=== PATIENT | male | born 1980 | race Caucasian/White ===

== ENCOUNTER 2017-04-19 15:18 | Emergency (ER) | payer SELFPAY ==
[2017-04-19 15:43] LABS: #Basophils 0.1 thou/uL (0.0-0.2); #Eosinphils 0.9 thou/uL (0.0-0.7); #Lymphocytes 2.8 thou/uL (1.20-3.40); #Monocytes 0.9 thou/uL (0.11-0.59); #Neutrophils 5.3 thou/uL (1.40-6.50); %Basophils 1.2 % (0.0-1.0); %Eosinophils 9.3 % (0.0-10.0); %Lymphocytes 27.6 % (21.0-51.0); %Monocytes 9.2 % (0.0-10.0); %Neutrophils 52.8 % (42.0-75.0); Hemoglobin 16.7 g/dL (14.0-18.0); Mean Corpuscular HGB CONC 35.6 g/dL (32.0-36.0); Mean Corpuscular Hemoglobin 31.9 pg (27.0-31.0); Mean Corpuscular Volume 89.6 fl (80.0-94.0); Platelet Count 257 thou/uL (130-400); RBC Distribution Width 11.2 % (11.5-14.5); Red Blood Cell (RBC) Count 5.24 mill/uL (4.70-6.10)
[2017-04-19 15:58] LABS: ALT (SGPT) 18 U/L (8-55); AST (SGOT) 13 U/L (5-34); Albumin 3.6 g/dL (3.5-5.0); Alkaline Phosphatase 68 U/L (40-150); Anion Gap 14 mmol/L (10-20); BUN (Urea Nitrogen) 10 mg/dL (8.9-20.6); Bilirubin, Total 0.6 mg/dL (0.2-1.2); CKMB 0.9 ng/mL (0-6.6); Calc. Creatinine Clearance 0 mL/min (70-130); Carbon Dioxide 24 mmol/L (22-29); Chloride 107 mmol/L (98-107); Estimated GFR-MDRD 78; Globulin 3.2 g/dL (2.4-3.5); Glucose 146 mg/dL (70-105); Potassium 3.5 mmol/L (3.5-5.1); Protein, Total 6.8 g/dL (6.0-8.3); Sodium 141 mmol/L (136-145); Troponin I Less than 0.010 ng/mL (< 0.028)
--- NOTE | 2017-04-19 15:58 | RAD ---
FRONTAL VIEW CHEST: Comparison: 12-19-14 Indication: Chest pain. FINDINGS: There is no evidence of consolidation, effusion, or discrete pneumothorax. The cardiac silhouette is within normal limits. IMPRESSION: No focal consolidation. POS: [place]
--- NOTE | 2017-04-19 17:51 | CT ---
CT OF CHEST WITH CONTRAST CT ABDOMEN AND PELVIS WITH CONTRAST 3D VOLUME RENDERING PERFORMED CT AORTOGRAM: Clinical history: Chest pain. FINDINGS: The thoracoabdominal aorta is of normal caliber, without evidence of dissection. There is no periaor tic hematoma. No retroperitoneal hemorrhage. There is multilevel endplate irregularity of the imaged spine with mild areas of chronic appearing h eight loss. Correlate clinically. No evidence of lobar consolidation, effusion, or pneumothorax. There are several scattered mildly prominent mesenteric lymph nodes, nonspecific. IMPRESSION: 1. No evidence of acute aortic dissection or aneurysm. 2. Nonspecific mild enlargement of numerous mesenteric lymph nodes. This could be on the basis of me senteric adenitis or alternatively a lymphoproliferative process. Recommend correlation with laborat ory values, clinical assessment, and as necessary, imaging follow up. Code T POS: [facility]
== END 2017-04-19 17:50 | disposition home or self-care (01) ==
LOC: BURERS 15:18
DX: R07.9 Chest pain, unspecified (principal); I10 Essential (primary) hypertension; F17.210 Nicotine dependence, cigarettes, uncomplicated
CPT/HCPCS: 71010; 71275; 80053; 82553; 83690; 83880; 84484; 85025; 85379; 93005; 96360

== ENCOUNTER 2021-09-18 23:51 | Emergency (ER) | payer SELFPAY ==
[2021-09-19] MEDS ORDERED: Albuterol Sulfate 1.25 MG/3 ML NEB ONE (00:17)
[2021-09-19] MEDS ORDERED: Albuterol Sulfate 2.5 mg/0.5 ml Neb ONE ×6 (00:22→01:32)
[2021-09-19 01:36] LABS: #Basophils 0.1 thou/uL (0.0-0.2); #Eosinphils 0.5 thou/uL (0.0-0.7); #Lymphocytes 1.1 thou/uL (1.20-3.40); #Monocytes 0.4 thou/uL (0.11-0.59); #Neutrophils 7.8 thou/uL (1.40-6.50); %Basophils 1.2 % (0.0-1.0); %Eosinophils 5.1 % (0.0-10.0); %Lymphocytes 11.1 % (21.0-51.0); %Monocytes 4.3 % (0.0-10.0); %Neutrophils 78.4 % (42.0-75.0); Hemoglobin 14.8 g/dL (14.0-18.0); Mean Corpuscular HGB CONC 34.4 g/dL (32.0-36.0); Mean Corpuscular Hemoglobin 30.2 pg (27.0-31.0); Mean Corpuscular Volume 87.9 fL (78.0-98.0); Mean Platelet Volume 6.4 fL (7.4-10.4); Platelet Count 248 thou/uL (130-400); RBC Distribution Width 11.8 % (11.5-14.5); Red Blood Cell (RBC) Count 4.91 mill/uL (4.70-6.10); White Blood Cell (WBC) Count 9.9 thou/uL (4.8-10.8)
[2021-09-19 01:48] LABS: Base Excess-Venous 0.4 mmol/L (-2.0 to 3.0); Bicarbonate (HCO3v) 25.6 mmol/L (22.0-28.0); CO2 Tension (PvCO2) 42.7 mmHg (42.0-51.0); Calcium, Ionized 1.11 mmol/L (1.15-1.33); Chloride 105 mmol/L (98-107); Hemoglobin - Calc 14.3 g/dL (14.0-18.0); Potassium 3.8 mmol/L (3.5-5.1); Sodium 142 mmol/L (138-145); vO2 Saturation-calc 95.1 % (60.0-85.0)
[2021-09-19 02:03] LABS: ALT (SGPT) 20 U/L (8-55); AST (SGOT) 18 U/L (5-34); Albumin 3.4 g/dL (3.5-5.0); Alkaline Phosphatase 73 U/L (40-110); Anion Gap 13 mmol/L (10-20); BUN (Urea Nitrogen) 14 mg/dL (8.9-20.6); Bilirubin, Total 0.9 mg/dL (0.2-1.2); Calc. Creatinine Clearance 0 mL/min (70-130); Calcium 8.4 mg/dL (7.8-10.44); Carbon Dioxide 25 mmol/L (22-29); Chloride 105 mmol/L (98-107); Glucose 125 mg/dL (70-105); Potassium 3.7 mmol/L (3.5-5.1); Protein, Total 6.4 g/dL (6.0-8.3); Sodium 139 mmol/L (136-145)
== END 2021-09-19 02:31 | disposition home or self-care (01) ==
LOC: BURERS 23:51
DX: J45.901 Unspecified asthma with (acute) exacerbation (principal); I10 Essential (primary) hypertension; I77.1 Stricture of artery; Z79.899 Other long term (current) drug therapy
CPT/HCPCS: 71045; 80053; 82330; 82803; 85014; 85025; J7611

== ENCOUNTER 2022-10-04 01:43 | Emergency (ER) | payer SELFPAY ==
[2022-10-04] MEDS ORDERED: Ipratropium Bromide 2.5 ml Neb ONE (01:56)
[2022-10-04] MEDS ORDERED: methylPREDNISolone Sod Succ/PF 125 MG/2 ML VIAL ONE (01:57)
[2022-10-04] MEDS ORDERED: Ipratropium/Albuterol 3 ML NEB ONE (02:31)
== END 2022-10-04 02:53 | disposition home or self-care (01) ==
LOC: BURERS 01:43
DX: J44.1 Chronic obstructive pulmonary disease with (acute) exacerbation (principal); I10 Essential (primary) hypertension; Z87.891 Personal history of nicotine dependence
CPT/HCPCS: 96372; J2930; J7620